=== PATIENT | female | born 1965 | race Caucasian/White ===

== ENCOUNTER 2019-04-24 15:24 | Emergency (ER) | payer OTHER ==
[~2019-04-24] VITALS: Ht 162.6 cm; Wt 69.4 kg
[2019-04-24] MEDS ORDERED: INTESTINES (15:49)
[2019-04-24] MEDS ORDERED: DICYCLOMIN10 MG/5 M1 (15:50)
[2019-04-24] MEDS ORDERED: FAMOTIDINE (15:51)
[2019-04-24] MEDS ORDERED: TRIMETHOBENZAMIDE (15:53)
[2019-04-24] MEDS ORDERED: CARAFATE1 GM PO (18:53)
[2019-04-24] MEDS ORDERED: ZANTAC300 MG PO (18:53)
== END 2019-04-24 19:54 | disposition home or self-care (01) ==
LOC: ER 15:24
DX: K29.00 Acute gastritis without bleeding (principal)